=== PATIENT | female | born 1950 | race Hispanic/Latino ===

== ENCOUNTER 2020-04-02 06:11 | Inpatient (IN) | payer MEDICARE, OTHER ==
[~2020-04-02] VITALS: Ht 157.5 cm; Wt 80.7 kg
[2020-04-02] VITALS (19 sets, daily range): BP systolic 98–145; BP diastolic 50–119
[2020-04-02] MEDS ORDERED: PANTOPRAZOLE 40 MG 10ML VIAL IV STA (06:20)
[2020-04-02] MEDS ORDERED: SODIUM CHLORIDE 0.9% 1000ML 1,000 ML IV STA (06:20)
[2020-04-02] MEDS ORDERED: ONDANSETRON HCL INJ 2MG/ML 2ML 2 MG/ML VIAL IV STA (06:20)
[2020-04-02 06:40] LABS: BASOPHILS % 0.3 % (0.0-1.0); EOSINOPHILS # (AUTO) 0.1 (0.0-0.4); EOSINOPHILS % 0.5 % (0.0-6.0); HEMATOCRIT 40.4 % (34.2-44.1); LYMPHOCYTES % 8.9 % (18.0-39.1); MEAN CORPUSCULAR HEMOGLOBIN 26.5 pg (28-32); MEAN CORPUSCULAR HGB CONC 32.2 g/dL (31-35); MEAN CORPUSCULAR VOLUME 82.4 fL (81-99); MONOCYTES # (AUTO) 0.8 (0.2-0.8); MONOCYTES % 7.4 % (4.4-11.3); NEUTROPHILS # (AUTO) 8.9 (2.1-6.9); NEUTROPHILS % 82.3 % (38.7-80.0); PLATELET COUNT 275 x10e3/uL (140-360); RED CELL DISTRIBUTION WIDTH 14.5 % (11.7-14.4)
[2020-04-02 06:49] LABS: INR 0.93; PARTIAL THROMBOPLASTIN TIME 29.4 seconds (23.8-35.5); PROTHROMBIN TIME 12.9 seconds (11.9-14.5)
[2020-04-02 06:56] LABS: BILIRUBIN,URINE SMALL (NEGATIVE); CLARITY,URINE HAZY (CLEAR); COLOR,URINE YELLOW (YELLOW); KETONES,URINE 1+ (NEGATIVE); LEUKOCYTE ESTERASE ,URINE TRACE (NEGATIVE); NITRITE,URINE NEGATIVE (NEGATIVE); PROTEIN,URINE DIPSTICK >=300 (NEGATIVE); URINE UROBILINOGEN 0.2 mg/dL (0.2 - 1)
[2020-04-02 06:59] LABS: ALANINE AMINOTRANSFERASE 32 IU/L (0-55); ALBUMIN 3.9 g/dL (3.5-5.0); ALBUMIN/GLOBULIN RATIO 1.2 (0.8-2.0); ALKALINE PHOSPHATASE 87 IU/L (40-150); AMYLASE 46 U/L (25-125); ANION GAP 14.5 mmol/L (8-16); BLOOD UREA NITROGEN 12 mg/dL (7-26); BUN/CREATININE RATIO 18 (6-25); CALCIUM 9.2 mg/dL (8.4-10.2); CARBON DIOXIDE 25 mmol/L (22-29); CHLORIDE 102 mmol/L (98-107); CREATINE KINASE 1196 IU/L (29-168); CREATININE, SERUM 0.68 mg/dL (0.57-1.11); EST GLOMERULAR FILTRATION RATE > 60 ML/MIN (60-); GLUCOSE 145 mg/dL (74-118); LIPASE 16 U/L (8-78); POTASSIUM 3.5 mmol/L (3.5-5.1); SODIUM 138 mmol/L (136-145)
[2020-04-02 07:03] LABS: BACTERIA,URINE FEW /HPF; EPITHELIAL CELLS,URINE FEW /LPF; RBC,URINE 0-5 /HPF (0-5)
[2020-04-02 07:04] LABS: MUCUS,URINE FEW (RARE)
[2020-04-02] MEDS ORDERED: ASPIRIN 81 MG CHEW TAB PO ONE (07:15)
[2020-04-02] MEDS ORDERED: SODIUM CHLORIDE 0.9% 50ML 0 ML ONE (07:27)
[2020-04-02] MEDS ORDERED: IOPAMIDOL 370 MG/ML 200 ML INFUS..BTL INJ ONE ×2 (07:27→08:11)
[2020-04-02] MEDS ORDERED: CLOPIDOGREL BISULFATE 75 MG TAB PO ONE (07:30)
[2020-04-02] MEDS ORDERED: ENOXAPARIN SODIUM INJ 100 MG/ML SYR SC SCH (07:30)
[2020-04-02] MEDS ORDERED: CLOPIDOGREL BISULFATE 75 MG TAB ONE (07:35)
[2020-04-02] MEDS ORDERED: ASPIRIN 81 MG ENTERIC COATED PO ONE (07:35)
[2020-04-02] MEDS: ONDANSETRON HCL INJ 2MG/ML 2ML 2 MG/ML VIAL IV PRN (07:41)
[2020-04-02] MEDS ORDERED: MORPHINE SULFATE 2 MG/ML SYR 1ML IV PRN (07:45)
[2020-04-02] MEDS ORDERED: METOPROLOL TARTRATE 25 MG TAB PO SCH (07:45)
[2020-04-02] MEDS ORDERED: NITROGLYCERIN 0.4 MG SUBL SL PRN (07:45)
[2020-04-02] MEDS ORDERED: MONTELUKAST SOD10 MG (07:52)
[2020-04-02] MEDS ORDERED: CLOBETASOL PROP50 ML (07:52)
[2020-04-02] MEDS ORDERED: ALBUTEROL (07:52)
[2020-04-02] MEDS ORDERED: SYMBICORT 16010.2 GM (07:52)
[2020-04-02] MEDS ORDERED: OMEPRAZOLE40 MG (07:52)
[2020-04-02] MEDS ORDERED: FLUTICASONE PRO16 GM (07:52)
[2020-04-02] MEDS ORDERED: MELOXICAM15 MG (07:52)
[2020-04-02] MEDS ORDERED: SPIRIVA18 MCG (07:52)
[2020-04-02] MEDS ORDERED: SHINGRIX V50 MCG/0.5 (07:52)
[2020-04-02] MEDS ORDERED: NAPROXEN500 MG (07:52)
[2020-04-02] MEDS: SODIUM CHLORIDE 0.9% 1000ML 1,000 ML IV SCH ×2 (08:02→10:47)
--- NOTE | 2020-04-02 08:03 | Emergency Department Note ---
History of Present Illnes History of Present Illness Chief Complaint: Abdominal Complaints History of Present Illness This is a 69 year old female 69 Y/O FEMALE PT AAOX3 REPORTS INTERMITTENT EPIGASTRIC PAIN WITH N/V X2 DAYS. Historian: Patient Arrival Mode: Car Ethanol Operator Required: No Onset (how long ago): day(s) (2) Location: mid epigastric Quality: burning pain Radiation: Reports non-radiation Severity: moderate Onset quality: gradual Duration (how long): day(s) Timing of current episode: constant Progression: waxing and waning Chronicity: recurrent Context: Denies recent illness Relieving factors: none Exacerbating factors: none Associated symptoms: Reports denies other symptoms, Reports nausea/vomiting; Denies chest pain Treatments prior to arrival: other (tried Nexium, Tums, Pepto-bismol without benefit) Past Medical/Family History Physician Review I have reviewed the patient's past medical and family history. Any updates have been documented here. Past Medical History Recent Fever: No Clinical Suspicion of Infectio: No New/Unexplained Change in Ment: No Past Medical History: Asthma Other Medical History: ACID REFLUX, Hiatal Hernia Past Surgical History: Cholecysctectomy, , Knee Replacement, Hernia Repair Other Surgery: RIGHT KNEE REPLACEMENT Social History Smoking Cessation: Never Smoker Counseling Performed: No Alcohol Use: None Any Illegal Drug Use: No TB Exposure/Symptoms: No Physically hurt or threatened: No Family History Family history of heart diseas: No Other Any Pre-Existing Lines (PICC,: No Review of Systems Review of Systems Constitutional: Reports no symptoms EENTM: Reports no symptoms Cardiovascular: Reports as per HPI Respiratory: Reports no symptoms Gastrointestinal: Reports as per HPI Genitourinary: Reports no symptoms Musculoskeletal: Reports no symptoms Integumentary: Reports no symptoms Neurological: Reports no symptoms Psychological: Reports no symptoms Endocrine: Reports no symptoms Hematological/Lymphatic: Reports no symptoms Physical Exam Related Data Allergies: Coded Allergies: cefuroxime (Verified Allergy, Intermediate, 04/02/20) Penicillins (Verified Allergy, Mild, 02/15/09) Sulfa (Sulfonamide Antibiotics) (Verified Allergy, Mild, 02/15/09) Triage Vital Signs Vital Signs Date Time Temp Pulse Resp B/P (MAP) Pulse Ox O2 Delivery O2 Flow Rate FiO2 04/02/20 06:15 98.8 110 18 132/95 96 Room Air Vital signs reviewed: Yes Physical Exam CONSTITUTIONAL Constitutional: Present well-developed, Present well-nourished, Present obese HENT HENT: Present normocephalic, Present atraumatic, Present oropharynx clear/m oist, Present nose normal HENT L/R: Present left ext ear normal, Present right ext ear normal EYES Eyes: Reports PERRL, Reports conjunctivae normal NECK Neck: Present ROM normal PULMONARY Pulmonary: Present effort normal, Present breath sounds normal CARDIOVASCULAR Cardiovascular: Present regular rhythm, Present heart sounds normal, Present capillary refill normal, Present normal rate GASTROINTESTINAL Abdominal: Present soft, Present nontender, Present bowel sounds normal GENITOURINARY Genitourinary: Present exam deferred SKIN Skin: Present warm, Present dry MUSCULOSKELETAL Musculoskeletal: Present ROM normal NEUROLOGICAL Neurological: Present alert, Present oriented x 3, Present no gross motor or sensory deficits PSYCHOLOGICAL Psychological: Present mood/affect normal, Present judgement normal Results Laboratory Result Diagram: 04/02/20 0623 04/02/20 0623 Laboratory Laboratory Tests Test 04/02/20 06:32 04/02/20 06:23 Urine Color Yellow (YELLOW) Urine Clarity Hazy (CLEAR) Urine pH 6.5 (5 - 7) Urine Specific [place] 1.025 (1.010-1.025) Urine Protein >=300 (NEGATIVE) Urine Glucose (UA) Negative (NEGATIVE) Urine Ketones 1+ (NEGATIVE) Urine Blood Negative (NEGATIVE) Urine Nitrite Negative (NEGATIVE) Urine Bilirubin Small (NEGATIVE) Urine Urobilinogen 0.2 mg/dL (0.2 - 1) Urine Leukocyte Esterase Trace (NEGATIVE) Urine RBC 0-5 /HPF (0-5) Urine WBC 6-10 /HPF (0-5) Urine Epithelial Cells Few /LPF (NONE) Urine Bacteria Few /HPF (NONE) Urine Mucus Few (RARE) White Blood Count 10.80 x10e3/uL (4.8-10.8) Red Blood Count 4.90 x10e6/uL (3.6-5.1) Hemoglobin 13.0 g/dL (12.0-16.0) Hematocrit 40.4 % (34.2-44.1) Mean Corpuscular Volume 82.4 fL (81-99) Mean Corpuscular Hemoglobin 26.5 pg (28-32) Mean Corpuscular Hemoglobin Concent 32.2 g/dL (31-35) Red Cell Distribution Width 14.5 % (11.7-14.4) Platelet Count 275 x10e3/uL (140-360) Neutrophils (%) (Auto) 82.3 % (38.7-80.0) Lymphocytes (%) (Auto) 8.9 % (18.0-39.1) Monocytes (%) (Auto) 7.4 % (4.4-11.3) Eosinophils (%) (Auto) 0.5 % (0.0-6.0) Basophils (%) (Auto) 0.3 % (0.0-1.0) Neutrophils # (Auto) 8.9 (2.1-6.9) Lymphocytes # (Auto) 1.0 (1.0-3.2) Monocytes # (Auto) 0.8 (0.2-0.8) Eosinophils # (Auto) 0.1 (0.0-0.4) Basophils # (Auto) 0.0 (0.0-0.1) Absolute Immature Granulocyte (auto 0.06 x10e3/uL (0-0.1) Prothrombin Time 12.9 seconds (11.9-14.5) Prothromb Time International Ratio 0.93 Activated Partial Thromboplast Time 29.4 seconds (23.8-35.5) Sodium Level 138 mmol/L (136-145) Potassium Level 3.5 mmol/L (3.5-5.1) Chloride Level 102 mmol/L (98-107) Carbon Dioxide Level 25 mmol/L (22-29) Anion Gap 14.5 mmol/L (8-16) Blood Urea Nitrogen 12 mg/dL (7-26) Creatinine 0.68 mg/dL (0.57-1.11) Estimat Glomerular Filtration Rate > 60 ML/MIN (60-) BUN/Creatinine Ratio 18 (6-25) Glucose Level 145 mg/dL (74-118) Calcium Level 9.2 mg/dL (8.4-10.2) Magnesium Level 1.7 MG/DL (1.3-2.1) Total Bilirubin 0.7 mg/dL (0.2-1.2) Aspartate Amino Transf (AST/SGOT) 135 IU/L (5-34) Alanine Aminotransferase (ALT/SGPT) 32 IU/L (0-55) Alkaline Phosphatase 87 IU/L (40-150) Creatine Kinase 1196 IU/L (29-168) Creatine Kinase MB 87.80 ng/mL (0-5.0) Troponin I 10.514 ng/mL (0-0.300) Total Protein 7.1 g/dL (6.5-8.1) Albumin 3.9 g/dL (3.5-5.0) Globulin 3.2 g/dL (2.3-3.5) Albumin/Globulin Ratio 1.2 (0.8-2.0) Amylase Level 46 U/L (25-125) Lipase 16 U/L (8-78) Lab results reviewed: Yes Laboratory comments elevated troponin, ck, ck-mb Imaging Imaging results reviewed: Yes Procedures 12 Lead ECG Interpretation ECG Interpretation : ECG: ECG 1 Ethanol Operator: Interpreted by ED physician Date: Apr 02, 2020 Time: 06:17 Rhythm: sinus tachycardia Rate: tachycardia (110) QRS axis: left ST segment flattening: V2 (<1mm) T wave inversion: III T waves flattening: II, aVF, V4, V5, V6 Clinical Impression: abnormal ECG Critical Care Time Total Critical Care Time (min): 30 Critical care time exclusive o: separately billable procedures Critcal care necessary due to: other (NSTEMI) Critcal care time spent by me: discussion w consultants, discussion w primary provider, evaluation patient response to tx, examination of patient, obtaining hx from patient/surrogate, order/perform tx or interventions, re-evaluation of patient condition Assessment & Plan Medical Decision Making MDM 69 y/o with PHYLLIS pain and N/V x 2 days - check cbc, chem, ecg, cardiac enzymes, amylase/lipase, ua, cxr - r/o STEMI/NSTEMI, pancreatitis, GERD, gastritis, dehydration with renal insuff, UTI, ketonuria Reassessment Reassessment Troponin/CK/MB elevated - ASA, Plavix and Metoprolol given - I spoke with patient again who then reported she DID have some CP 2 days ago which radiated to jaw, lasted hours. I spoke with Dr Valencia for admission (Dr Helm patient) and Dr Silvano Oneal who wants to take pt to cath. I respoke with pt and she understands and wants cardiac cath. Assessment & Plan Final Impression: (1) Vomiting (2) NSTEMI (non-ST elevated myocardial infarction) Depart Disposition: ADMITTED Last Vital Signs Date Time Temp Pulse Resp B/P (MAP) Pulse Ox O2 Delivery O2 Flow Rate FiO2 04/02/20 07:25 95 18 145/79 98 04/02/20 06:15 98.8 Room Air Medications in the ED Pantoprazole Sodium 40 mg ONCE STAT IV Last administered on 04/02/20at 06:31; Admin Dose 40 MG; Start 04/02/20 at 06:20; Stop 04/02/20 at 06:37; Status DC Ondansetron HCl 4 mg ONCE STAT IV Last administered on 04/02/20at 06:31; Admin Dose 4 MG; Start 04/02/20 at 06:20; Stop 04/02/20 at 06:37; Status DC Sodium Chloride 1,000 ml @ 0 mls/hr Q0M STAT IV Last administered on 04/02/20at 06:30; Admin Dose 999 MLS/HR; Start 04/02/20 at 06:20; Stop 04/02/20 at 06:23; Status DC Aspirin 324 mg ONCE ONCE PO Last administered on 04/02/20at 07:41; Admin Dose 324 MG; Start 04/02/20 at 07:15; Stop 04/02/20 at 07:20; Status DC Enoxaparin Sodium 80 mg Q12H SC ; Start 04/02/20 at 07:30; Stop 04/02/20 at 07:26; Status DC Sodium Chloride 50 ml @ ud STK-MED ONCE .ROUTE ; Start 04/02/20 at 07:27; Stop 04/02/20 at 07:22; Status DC Iopamidol 74,000 mg STK-MED ONCE INJ ; Start 04/02/20 at 07:27; Stop 04/02/20 at 07:22; Status DC Clopidogrel Bisulfate 600 mg ONCE ONCE PO Last administered on 04/02/20at 07:41; Admin Dose 600 MG; Start 04/02/20 at 07:30; Stop 04/02/20 at 07:31; Status DC Clopidogrel Bisulfate 450 mg STK-MED ONCE .ROUTE ; Start 04/02/20 at 07:35; Stop 04/02/20 at 07:29; Status DC Aspirin 324 mg STK-MED ONCE PO ; Start 04/02/20 at 07:35; Stop 04/02/20 at 07:29; Status DC Aspirin 81 mg QAM PO ; Start 04/02/20 at 09:00; Stop 05/02/20 at 08:59; Status UNV Clopidogrel Bisulfate 75 mg DAILY PO ; Start 04/02/20 at 09:00; Stop 05/02/20 at 08:59; Status UNV Metoprolol Tartrate 12.5 mg Q12H PO ; Start 04/02/20 at 07:45; Stop 05/02/20 at 07:44; Status UNV Nitroglycerin 0.4 mg Q5M PRN SL CHEST PAIN; Start 04/02/20 at 07:45; Status UNV Morphine Sulfate 2 mg Q3H PRN IV MODERATE PAIN (4-6); Start 04/02/20 at 07:45; Stop 04/09/20 at 07:44; Status UNV Ondansetron HCl 4 mg Q4H PRN IV NAUSEA AND VOMITING Last administered on 04/02/20at 07:41; Admin Dose 4 MG; Start 04/02/20 at 07:45; Stop 05/02/20 at 07:44; Status UNV Sodium Chloride 1,000 ml @ 125 mls/hr Q8H IV ; Start 04/02/20 at 07:45; Stop 04/02/20 at 23:44; Status UNV PEDRO LINTON MD Apr 02, 2020 08:03
--- NOTE | 2020-04-02 08:08 | Diagnostic Imaging Report ---
EXAMINATION: CHEST SINGLE (PORTABLE) INDICATION: NSTEMI COMPARISON: None FINDINGS: TUBES and LINES: None. LUNGS: Mildly hypoinflated lungs. Mild patchy bibasilar opacities. No evidence of lobar consolidation or pulmonary edema. PLEURA: No pleural effusion or pneumothorax. HEART AND MEDIASTINUM: The cardiomediastinal silhouette is unremarkable. There are atherosclerotic calcifications within the aorta. BONES AND SOFT TISSUES: No acute osseous lesion. Soft tissues are unremarkable. UPPER ABDOMEN: No free air under the diaphragm. IMPRESSION: Mildly hypoinflated lungs with bibasilar opacities, likely atelectasis. Infectious process is possible in the appropriate clinical setting. No evidence of pulmonary edema. Signed by: Dr. Sameera Snow MD on 04/02/2020 8:04 AM
[2020-04-02] MEDS ORDERED: LIDOCAINE HCL 2% LOCAL 20 ML VIAL ONE (08:10)
[2020-04-02] MEDS ORDERED: MIDAZOLAM HCL 2 MG/2 ML VIAL ONE (08:10)
[2020-04-02] MEDS ORDERED: HEPARIN SOD (PORCINE) 1000 UNIT/ML 30ML ONE (08:10)
[2020-04-02] MEDS ORDERED: FENTANYL CITRATE/PF 100MCG/2 ML INJ ONE (08:10)
[2020-04-02] MEDS ORDERED: SODIUM CHLORIDE 0.9% 1000ML 1,000 ML ONE (08:11)
[2020-04-02] MEDS ORDERED: NITROGLYCERIN/D5W 200 MCG/ML 250 ML ONE (08:11)
--- NOTE | 2020-04-02 08:25 | NUR ---
CONSENT ON CHART
[2020-04-02] MEDS ORDERED: METOCLOPRAMIDE HCL 10 MG/2ML VIAL ONE (08:49)
[2020-04-02] MEDS ORDERED: ATROPINE SULFATE 0.1 MG/ML 10ML SYR ONE (08:49)
[2020-04-02] MEDS: CLOPIDOGREL BISULFATE 75 MG TAB PO SCH (09:00)
[2020-04-02] MEDS: ASPIRIN 81 MG ENTERIC COATED PO SCH (09:00)
[2020-04-02] MEDS ORDERED: BIVALRIUDIN 250 MG/VIAL VIAL IV ONE (09:01)
[2020-04-02] MEDS ORDERED: EPTIFIBATIDE 20 ML ONE (09:02)
[2020-04-02] MEDS ORDERED: SODIUM CHLORIDE 0.9% 50ML 50 ML ONE (09:03)
[2020-04-02] MEDS ORDERED: HYDRALAZINE HCL 20 MG/ML VIAL IV PRN (10:15)
[2020-04-02] MEDS ORDERED: ALBUTEROL/IPRATROPIUM 3 ML NEB NEB PRN (10:15)
[2020-04-02] MEDS ORDERED: METOPROLOL TARTRATE INJ 1 MG/ML VIAL IV PRN (10:15)
[2020-04-02] MEDS ORDERED: MORPHINE SULFATE INJ 4 MG/ML INJ 1ML IV PRN (10:15)
--- NOTE | 2020-04-02 10:38 | Consultation ---
DATE OF CONSULTATION: 04/02/2020 Cardiac Consultation REASON FOR CONSULTATION: [id number] myocardial infarction. HISTORY OF PRESENT ILLNESS: A 69-year-old delightful lady, who is known with longstanding history of asthma, sleep apnea, and arthritis. The patient is in her usual state of health since having repeated chest pain, radiating to her neck and to her back, severe with nausea and vomiting. Today, her symptoms were by far much worse. She came to the emergency room. Her EKG showed nonspecific ST changes. Her troponin came back positive at 10 with CK-MB of 87 and total CK of 1196. I was called by Dr. Kelly from ER. We decided to take the patient directly to the slab puller. I visited the patient, her main problem is easy fatigability, shortness of breath on exertion, and she attributed that to her long-standing history of asthma. She does have also history of sleep apnea. Regardless, but since , she is having very typical symptoms for unstable coronary syndrome and myocardial infarction, although it is characterized more by nausea, vomiting, lower retrosternal chest pain, and pain radiating to her neck. Today, the pain was very severe and the nausea, vomiting was very severe, so she came to the emergency room. REVIEW OF SYSTEMS: GENERAL: No fever, no chills. HEENT: No vision problem. No hearing problem. PULMONARY: The patient does have several episodes of exacerbation of her asthma. She is followed by Dr. Raza. CARDIAC: As per acute illness, GI: Nausea, vomiting, and quite uncomfortable. No hematemesis. No melena. : Increased frequency of urination. MUSCULOSKELETAL: Back pain, knee pain. NEUROLOGICAL: No easy bruising or bleeding. ENDOCRINE: No diabetes mellitus. SKIN: No skin rashes. SOCIAL HISTORY: She is . She is nonsmoker and non-alcohol drinker. PAST MEDICAL HISTORY: 1. Cholecystectomy. 2. Knee surgery. 3. Asthma. 4. Sleep apnea. FAMILY HISTORY: No family history of premature coronary artery disease. HOME MEDICATIONS: 1. Symbicort. 2. Fluticasone. 3. Meloxicam. 4. Singulair. ALLERGIES: FUROXIME, SULFA, PENICILLIN. PHYSICAL EXAMINATION: GENERAL: The patient in distress. VITAL SIGNS: Height of 5 feet 2 inches, weight of 173 pounds, blood pressure 130/80, heart rate of 80, respiratory rate of 18. HEENT: Pupils are reactive. NECK: No elevation of jugular venous pulsation. No bruit. CHEST: Clear to auscultation and percussion. HEART: PMI 5th left intercostal space. Normal first and second heart sounds. ABDOMEN: Soft. Good bowel sounds. EXTREMITIES: No cyanosis, no clubbing, no edema. NEUROLOGIC: Nonfocal. LABORATORY DATA: Sodium of 138, potassium 3.5, BUN 12, creatinine of 0.7. White blood cell count of 10.8, hemoglobin 13, hematocrit 40%, platelet count of 275,000. CK total of 1196, MB of 87, troponin of 10. EKG nonspecific ST changes. IMPRESSION: 1. [id number]-[id number] myocardial infarction, presenting with nausea and vomiting, most likely right coronary artery disease. 2. Asthma. 3. Sleep apnea. 4. Past history of cholecystectomy. 5. Arthritis. 6. 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 PLAN: The patient will be taken to the slab puller for catheterization with possible PCI. Procedure risks, benefits, and alternatives are discussed and explained. MD YADIEL Zuleta/KRISTI /[id number]
[2020-04-02] MEDS ORDERED: FAMOTIDINE 20 MG/2 ML VIAL IV NR (10:45)
[2020-04-02] MEDS: EPTIFIBATIDE 75mg 100ML 100 ML ONE ×2 (10:48→13:22)
[2020-04-02] MEDS: ACETAMINOPHEN 325 MG TAB PO PRN (10:49)
--- NOTE | 2020-04-02 10:53 | Operative Report ---
DATE OF PROCEDURE: 04/02/2020 SURGEON: Bridger Oneal MD TITLE OF THE PROCEDURE: 1. Left cardiac catheterization. 2. PCI and stenting of the right coronary artery. INDICATION: Non ST-elevation myocardial infarction. TECHNICAL DETAILS: The patient was taken to the cath lab tech with non ST-elevation myocardial infarction. Troponin at 10, CK-MB of 88, CK total of 1196. She was symptomatic. After the usual sterile preparation and draping procedure, 1 mg of Versed and 25 fentanyl given intravenously. An access was done to the right common femoral artery. Aust[place] left 4 and 3DRC catheter used to engage the coronaries. Pigtail for hemodynamic measurement and left ventriculogram. A decision was made to proceed with intervention. For that reason, the existing 4-[place]izen [place] sheath upgraded to 6-[place]izen [place] sheath. Angiomax and Integrilin given in the usual dosage. The guiding catheter was 3DRC. The balloon was 2.25 x 15, one inflation up to 12 atmospheres. Subsequently, stenting was done using 2.25 x 18 resolute stent up to 17 atmospheres. Repeat angiogram showed excellent results. Attention was made to the groin where it was closed successfully using Angio-Seal VIP device. The patient transferred to recovery in very stable condition and her symptoms improved. There were no complication. No blood loss. RESULTS: A. Coronary angiogram: Left main: Free of disease. LAD: 80% proximal lesion followed by 60% mid-LAD lesion. Circumflex: Minimal plaquing. Right coronary artery: Ecstatic long giving very very large PLV branch with 100% occlusion with clot present. There is 30% lesion in the PDA. B. Hemodynamic: Aorta pressure 115/55, LV pressure 115/18. C. Left ventriculogram showed mild inferior hypokinesis, ejection fraction of 50%. PCI PROCEDURE: Guiding catheter, 6-[place]izen [place] 3DRC, balloon is 2.25 x 15. Stent is 2.25 x 18 resolute drug stent up to 17 atmospheres. Lesion prior to intervention at the 100% occlusion with JOYCE 0 flow following perfusion is 0% with JOYCE-3 flow. COMPLICATION: None. BLOOD LOSS: None. IMPRESSION: 1. Acute myocardial infarction with the culprit artery is the right coronary artery. 2. Successful PCI without any complication. 3. Two vessel disease, RCA, which is the culprit and LAD. MD YADIEL Zuleta/KRISTI /[id number]
--- NOTE | 2020-04-02 11:13 | History and Physical ---
PRIMARY CARE PHYSICIAN: Dr. Deborah Munoz. DOOR MANAGER: Dr. Bridger Oneal. CHIEF COMPLAINT: Acute myocardial infarction, [id number], status post cardiac catheterization with stent to the RCA. HISTORY OF PRESENT ILLNESS: The patient is a 69-year-old female with asthma, hypertension, and osteoarthritis. The patient came to the hospital with increasing chest pain. The patient reported intermittent epigastric pain associated with nausea and vomiting for the past few days. The patient also complained of increase in radiating pain. Her cardiac enzyme is positive. Troponin I is 10. The patient's EKGs also showed changes with possible [id number] myocardial infarction with some ST depression. The patient was seen by Dr. Bridger Oneal. The patient underwent left cardiac catheterization and subsequently had a PCI, stent to the RCA. The patient is otherwise stable in the ICU post cardiac catheterization. Her CK level was 1196. Her troponin I is 10.5. CK-MB was 87. Liver enzymes slightly elevated, AST of 135. The patient's glucose 145. Her CBC count is unremarkable and same with chest x-ray. The patient is otherwise stable at this time post PCI to the RCA. PAST MEDICAL HISTORY: Asthma, dyslipidemia, hypertension, and osteoarthritis. PAST SURGICAL HISTORY: Right knee replacement, cholecystectomy, , and hernia repair. SOCIAL HISTORY: The patient does not drink. SOCIAL HISTORY: The patient does not smoke or use alcohol. No regular drug. ALLERGIES: TO PENICILLIN, CEPHALOSPORIN, AND SULFA DRUGS. HOME MEDICATIONS: The patient is on Symbicort nasal spray, Flonase, meloxicam, montelukast, naproxen, omeprazole, and Spiriva. PHYSICAL EXAMINATION: VITAL SIGNS: Temperature is 98, blood pressure 132/95, pulse rate 110, and respiration 20. GENERAL: The patient is not in acute distress. She is awake. HEENT: Normocephalic and atraumatic. Anicteric. NECK: Supple grossly. PULMONARY: Diminished breath sounds without any wheezing or rales. CARDIOVASCULAR: S1 and S2. Tachycardia. ABDOMEN: Soft and unremarkable. EXTREMITIES: No cyanosis or edema. NEUROLOGIC: No gross focal deficit. LABORATORY DATA: WBC is 10.8, hemoglobin 13, hematocrit 40, and platelets 275. Chemistry; sodium 138, potassium 3.5, chloride 103, bicarb 25, BUN 12, creatinine 0.6, and glucose 145. AST 135 and ALT 32. CK is 1196, CK-MB 87, and troponin is 10.5. IMPRESSION: 1. Acute myocardial infarction, [id number] myocardial infarction, status post cardiac catheterization with PCI stent to the RCA. 2. Baseline asthma. 3. Baseline hypertension. 4. Dyslipidemia. PLAN: Lipid panel in the morning. Post MT care including statin medication. Beta-henry. PPI or Pepcid. Home medication resumed. Plavix. Lovenox. Integrilin to finish the dosing. We will repeat the patient's lab work in the morning. Continue with postop care. We will follow up on renal function. MD GIOVANNI Campbell/MODL /[id number] cc: Deborah Munoz MD
[2020-04-02 13:56] LABS: CREATINE KINASE MB 77.7 ng/mL (0-5.0)
[2020-04-02] MEDS: FAMOTIDINE 20 MG/2 ML VIAL IV SCH (17:30)
[2020-04-02] MEDS ORDERED: EPTIFIBATIDE 75mg 100ML 100 ML IV NR (18:00)
[2020-04-02] MEDS ORDERED: ATORVASTATIN 20 MG TAB PO SCH (21:00)
[2020-04-02] MEDS: MONTELUKAST SODIUM 10 MG TAB PO SCH (21:17)
[2020-04-02] MEDS: BUDESONIDE/FORMOTEROL 160/4.5MCG INHALER INH SCH (21:17)
[2020-04-02] MEDS: HYDROCODONE/APAP 7.5MG-325MG 1 EA TAB PO PRN (23:15)
[2020-04-03] VITALS (13 sets, daily range): BP systolic 95–134; BP diastolic 49–78
--- NOTE | 2020-04-03 07:00 | NUR ---
BEDSIDE SHIFT REPORT RECEIVED FROM BROMINATION EQUIPMENT OPERATOR RN. PT DENIES NEEDS AT THIS TIME.
--- NOTE | 2020-04-03 07:00 | NUR ---
Patient endorsed to next shift for continuity of care.
[2020-04-03] MEDS: ONDANSETRON HCL INJ 2MG/ML 2ML 2 MG/ML VIAL IV PRN ×2 (07:36→21:07)
[2020-04-03] MEDS: HYDROCODONE/APAP 7.5MG-325MG 1 EA TAB PO PRN ×2 (07:36→21:08)
[2020-04-03 07:47] LABS: BASOPHILS % 0.5 % (0.0-1.0); EOSINOPHILS # (AUTO) 0.2 (0.0-0.4); EOSINOPHILS % 2.8 % (0.0-6.0); HEMATOCRIT 38.1 % (34.2-44.1); HEMOGLOBIN 11.6 g/dL (12.0-16.0); LYMPHOCYTES # (AUTO) 1.5 (1.0-3.2); LYMPHOCYTES % 20.9 % (18.0-39.1); MEAN CORPUSCULAR HGB CONC 30.4 g/dL (31-35); MEAN CORPUSCULAR VOLUME 85.2 fL (81-99); MONOCYTES # (AUTO) 0.7 (0.2-0.8); MONOCYTES % 8.9 % (4.4-11.3); NEUTROPHILS # (AUTO) 4.9 (2.1-6.9); NEUTROPHILS % 66.4 % (38.7-80.0); PLATELET COUNT 215 x10e3/uL (140-360); RED BLOOD COUNT 4.47 x10e6/uL (3.6-5.1); RED CELL DISTRIBUTION WIDTH 14.7 % (11.7-14.4)
[2020-04-03 08:11] LABS: ALANINE AMINOTRANSFERASE 26 IU/L (0-55); ALBUMIN 3.2 g/dL (3.5-5.0); ALBUMIN/GLOBULIN RATIO 1.1 (0.8-2.0); ALKALINE PHOSPHATASE 75 IU/L (40-150); ANION GAP 12.4 mmol/L (8-16); BLOOD UREA NITROGEN 14 mg/dL (7-26); BUN/CREATININE RATIO 21 (6-25); CALCIUM 8.3 mg/dL (8.4-10.2); CARBON DIOXIDE 26 mmol/L (22-29); CHLORIDE 105 mmol/L (98-107); CHOL/HDL RATIO 4.3 (3.0-3.6); CHOLESTEROL 180 MD/DL (0-199); CREATININE, SERUM 0.68 mg/dL (0.57-1.11); EST GLOMERULAR FILTRATION RATE > 60 ML/MIN (60-); GLUCOSE 92 mg/dL (74-118); HDL CHOLESTEROL 42 MG/DL (40-60); LDL CHOLESTEROL 100 MG/DL (60-130); POTASSIUM 3.4 mmol/L (3.5-5.1); SODIUM 140 mmol/L (136-145); TRIGLYCERIDES 188 MG/DL (0-149)
[2020-04-03 08:18] LABS: CREATINE KINASE MB 18.6 ng/mL (0-5.0)
[2020-04-03] MEDS: ASPIRIN 81 MG ENTERIC COATED PO SCH (09:33)
[2020-04-03] MEDS: FAMOTIDINE 20 MG/2 ML VIAL IV SCH ×2 (09:33→17:08)
[2020-04-03] MEDS: BUDESONIDE/FORMOTEROL 160/4.5MCG INHALER INH SCH (09:33)
[2020-04-03] MEDS: CLOPIDOGREL BISULFATE 75 MG TAB PO SCH (09:33)
[2020-04-03] MEDS ORDERED: POTASSIUM CHLORIDE 20MEQ/100ML 100 ML IV ONE (10:15)
[2020-04-03] MEDS ORDERED: TEMAZEPAM 7.5 MG CAP PO PRN (10:15)
[2020-04-03] MEDS ORDERED: PROMETHAZINE 12.5MG/ NACL 0.9% 12.5 MG/50 ML BAG IV PRN (10:15)
[2020-04-03] MEDS: SODIUM CHLORIDE 0.9% 1000ML 1,000 ML IV SCH (11:55)
[2020-04-03] MEDS: METOCLOPRAMIDE HCL 10 MG/2ML VIAL IV PRN ×2 (11:56→17:07)
[2020-04-03] MEDS: ACETAMINOPHEN 325 MG TAB PO PRN (17:07)
[2020-04-03] MEDS ORDERED: ATORVASTATIN 20 MG TAB PO SCH (21:00)
--- NOTE | 2020-04-03 21:09 | NUR ---
Patient assisted to ambulate to rest room, patient stable and no complains of sob, patient 97% on room air during walking.
[2020-04-03] MEDS: MONTELUKAST SODIUM 10 MG TAB PO SCH (21:25)
[2020-04-04] VITALS: BP 128/70
[2020-04-04] MEDS: HYDROCODONE/APAP 7.5MG-325MG 1 EA TAB PO PRN (02:15)
[2020-04-04 04:00] VITALS: BP 128/74
[2020-04-04 05:01] LABS: BASOPHILS % 0.4 % (0.0-1.0); EOSINOPHILS # (AUTO) 0.2 (0.0-0.4); EOSINOPHILS % 2.3 % (0.0-6.0); HEMATOCRIT 34.3 % (34.2-44.1); HEMOGLOBIN 10.6 g/dL (12.0-16.0); LYMPHOCYTES # (AUTO) 1.5 (1.0-3.2); LYMPHOCYTES % 18.8 % (18.0-39.1); MEAN CORPUSCULAR HEMOGLOBIN 26.2 pg (28-32); MEAN CORPUSCULAR HGB CONC 30.9 g/dL (31-35); MEAN CORPUSCULAR VOLUME 84.7 fL (81-99); MONOCYTES # (AUTO) 0.8 (0.2-0.8); MONOCYTES % 10.2 % (4.4-11.3); NEUTROPHILS # (AUTO) 5.5 (2.1-6.9); NEUTROPHILS % 67.9 % (38.7-80.0); PLATELET COUNT 214 x10e3/uL (140-360); RED BLOOD COUNT 4.05 x10e6/uL (3.6-5.1); RED CELL DISTRIBUTION WIDTH 14.2 % (11.7-14.4)
[2020-04-04 05:57] LABS: ANION GAP 12.5 mmol/L (8-16); BLOOD UREA NITROGEN 15 mg/dL (7-26); BUN/CREATININE RATIO 25 (6-25); CARBON DIOXIDE 27 mmol/L (22-29); CHLORIDE 103 mmol/L (98-107); CREATININE, SERUM 0.61 mg/dL (0.57-1.11); EST GLOMERULAR FILTRATION RATE > 60 ML/MIN (60-); GLUCOSE 94 mg/dL (74-118); POTASSIUM 3.5 mmol/L (3.5-5.1); SODIUM 139 mmol/L (136-145)
[2020-04-04 06:18] LABS: MAGNESIUM 1.8 MG/DL (1.3-2.1); PHOSPHORUS 3.6 MG/DL (2.3-4.7)
--- NOTE | 2020-04-04 06:45 | NUR ---
Patient endorsed to next shift for continuity of care.
[2020-04-04] MEDS: SODIUM CHLORIDE 0.9% 1000ML 1,000 ML IV SCH (07:00)
[2020-04-04] MEDS: ONDANSETRON HCL INJ 2MG/ML 2ML 2 MG/ML VIAL IV PRN (07:53)
[2020-04-04 08:35] VITALS: BP 99/57
[2020-04-04] MEDS: ASPIRIN 81 MG ENTERIC COATED PO SCH (09:02)
[2020-04-04] MEDS: CLOPIDOGREL BISULFATE 75 MG TAB PO SCH (09:02)
[2020-04-04] MEDS: FAMOTIDINE 20 MG/2 ML VIAL IV SCH (09:02)
[2020-04-04 09:27] VITALS: BP 99/57
[2020-04-04] MEDS ORDERED: REGLAN5 MG PO ×2 (09:34→09:39)
[2020-04-04] MEDS ORDERED: ZOFRAN4 MG SL (09:40)
[2020-04-04] MEDS ORDERED: PLAVIX75 MG PO (09:46)
[2020-04-04] MEDS ORDERED: LIPITOR20 MG PO (09:47)
[2020-04-04] MEDS ORDERED: ASPIRIN CHEW81 MG PO (09:47)
--- NOTE | 2020-04-04 10:17 | Discharge Summary ---
PRIMARY CARE PHYSICIAN: Dr. Deborah Munoz. JOB LITHOGRAPHER: Dr. Bridger Oneal. FINAL DIAGNOSES: 1. Acute myocardial infarction, [id number] myocardial infarction. 2. Status post cardiac catheterization, left heart catheterization with stent, PCI to the RCA. 3. Dyslipidemia. 4. Hypertension. DISCHARGE MEDICATIONS: 1. Zofran and Reglan p.r.n. 2. Plavix 75 mg daily. 3. Lipitor 20 mg at bedtime. 4. Aspirin 81 mg daily. Beta-henry was not given due to episodic bradycardia and also due to asthma. HISTORY: A 69-year-old female, came in with chest pain. Troponin I positive in the . The patient underwent emergent cardiac catheterization. Left heart catheterization was done. The patient's ejection fraction is 45% on echocardiogram. The patient had a stent to the RCA. Postoperatively, the patient experienced anesthesia side effect of nausea and vomiting. The patient was rehydrated. She is doing much better now. The patient is stable, discharged home today and continue with the prescription that was given. Medication described as the above. The patient to follow up with Dr. Bridger Oneal and primary care physician, Dr. Deborah Munoz within 1 to 2 weeks. The patient is stable at this time and discharged home. COVID-19 PCR test negative. MD GIOVANNI Campbell/KRISTI /[id number]
[2020-04-04] MEDS ORDERED: FAMOTIDINE 20 MG TAB PO SCH (16:30)
== END 2020-04-04 11:25 | disposition home or self-care (01) | DRG 247 ==
LOC: ER 06:15 → ERHOLD 07:40 → ICU 10:28 → IMCU 04-03 03:17
PROVIDERS: ADMIT Internal Medicine; ATTEND Internal Medicine
PROC: 027034Z Dilation of Coronary Artery, One Artery with Drug-eluting Intraluminal Device, Percutaneous Approach (ICD-10-PCS; principal; 2020-04-02)
PROC: 4A023N7 Measurement of Cardiac Sampling and Pressure, Left Heart, Percutaneous Approach (ICD-10-PCS; 2020-04-02)
PROC: B2111ZZ Fluoroscopy of Multiple Coronary Arteries using Low Osmolar Contrast (ICD-10-PCS; 2020-04-02)
PROC: B2151ZZ Fluoroscopy of Left Heart using Low Osmolar Contrast (ICD-10-PCS; 2020-04-02)
DX: I21.4 Non-ST elevation (NSTEMI) myocardial infarction (principal); Z11.59 Encounter for screening for other viral diseases; E78.5 Hyperlipidemia, unspecified; I10 Essential (primary) hypertension; G47.33 Obstructive sleep apnea (adult) (pediatric); M47.9 Spondylosis, unspecified; J45.909 Unspecified asthma, uncomplicated; I25.110 Atherosclerotic heart disease of native coronary artery with unstable angina pectoris; M17.11 Unilateral primary osteoarthritis, right knee; Z88.1 Allergy status to other antibiotic agents; Z88.0 Allergy status to penicillin; Z88.2 Allergy status to sulfonamides; E86.0 Dehydration
CPT/HCPCS: 36415; 71045; 80048; 80053; 80061; 81001; 82150; 82550; 82553; 83036; 83690; 83735; 84100; 84443; 84484; 85025; 85610; 85730; 87086; 92928; 93005; 93306; 93458; 99152; 99153; 99284; C1725; C1760; C1766; C1876; C1887; J0583; J1327; J1644; J2001; J2250; J2405; J2765; J3010; J3480; J7030; Q9967; U0002